=== PATIENT | female | born 1970 | race Caucasian/White ===

== ENCOUNTER 2022-01-03 19:12 | Emergency (ER) | payer SELFPAY ==
[~2022-01-03] VITALS: Ht 152.4 cm; Wt 89.0 kg
[2022-01-03] MEDS ORDERED: SYN150 MT (22:29)
[2022-01-03 22:42] VITALS: BP 112/62
== END 2022-01-03 22:43 | disposition home or self-care (01) ==
LOC: ER 19:59
DX: Z76.0 Encounter for issue of repeat prescription (principal); E05.90 Thyrotoxicosis, unspecified without thyrotoxic crisis or storm
CPT/HCPCS: 81025; 99283